=== PATIENT | male | born 1980 | race African-American/Black ===

== ENCOUNTER 2019-12-09 20:51 | Emergency (ER) | payer BC ==
[~2019-12-09] VITALS: Ht 185.4 cm; Wt 145.4 kg
[~2019-12-09 20:51] MED LIST: AMOXICILLIN500 MG OR; AUGMENTIN875TAB OR; CIPROFLOXACN500 MG PO; HUMULIN 70/30 SC; LORTAB 10 PO; LORTAB 5 OR; LORTAB 7.57.5 MG OR
[2019-12-09 22:17] LABS: HEMATOCRIT 37.4 % (39.0-50.0); HEMOGLOBIN 13.1 g/dl (14.0-18.0); IMMATURE GRANULOCYTES 0.2 % (0.0-5.0); MEAN CELL VOLUME 81.5 fL CALC (80.0-100.0); MEAN CORPUSCULAR HGB 28.5 pG CALC (26.0-32.0); NEUT# 4.44 thou/uL (1.82-7.42); RED BLOOD COUNT 4.59 mill/uL (4.70-6.10); RED CELL DISTRI WIDTH 13.4 % (11.5-15.5)
[2019-12-09 22:18] LABS: URINE BILIRUBIN - DIPSTICK NEGATIVE (NEGATIVE); URINE BLOOD DIPSTICK SMALL (NEGATIVE); URINE COLOR YELLOW; URINE GLUCOSE - DIPSTICK NEGATIVE (NEGATIVE); URINE KETONE TRACE mg/dL (NEGATIVE); URINE LEUK ESTERASE NEGATIVE (NEGATIVE); URINE NITRITE - DIPSTICK NEGATIVE (Negative); URINE PH 5.5 (4.5-8.0); URINE PROTEIN - DIPSTICK 30 mg/dL (NEG-TRACE); URINE SPECIFIC GRAVITY >=1.030; URINE UROBILINOGEN - DIPSTICK 0.2 E.U./dL (0.2)
[2019-12-09 22:24] LABS: URINE WBC 0-2 WBC/hpf (0-5)
[2019-12-09 22:35] LABS: ALBUMIN 4.2 g/dL (3.2-5.0); ALKALINE PHOSPHATASE 69 u/l (38-126); ANION GAP 13 (6-22 (CALC)); BILIRUBIN, TOTAL 0.4 mg/dL (0.0-1.4); BUN 21 mg/dL (9-20); BUN/CREATININE RATIO 13 (12-20 (CALC)); CARBON DIOXIDE 23 mmol/l (22-30); CHLORIDE 105 mmol/l (95-108); CREATININE 1.5 mg/dL (0.7-1.3); GFR 52 ML/MIN (>=60 (CALC)); GFR FOR AFR.AMER. > 60 ML/MIN (>=60 (CALC)); POTASSIUM 3.7 mmol/l (3.5-5.1); SGOT/AST 36 u/l (17-59); SODIUM 137 mmol/l (137-146); TOTAL PROTEIN 7.1 g/dL (6.3-8.2)
[2019-12-09 22:49] LABS: MYOGLOBIN 51 ng/mL (0 - 121)
[2019-12-09] MEDS ORDERED: LOTRISONE EX (22:50)
[2019-12-09 22:52] VITALS: BP 179/90
== END 2019-12-09 22:58 | disposition home or self-care (01) | DRG 607 ==
LOC: ED 20:51
PROVIDERS: Emergency Medicine
DX: L25.9 Unspecified contact dermatitis, unspecified cause (principal); E11.9 Type 2 diabetes mellitus without complications; I10 Essential (primary) hypertension; F17.200 Nicotine dependence, unspecified, uncomplicated

== ENCOUNTER 2020-05-06 09:10 | Emergency (ER) | payer BC ==
[~2020-05-06] VITALS: Ht 185.4 cm; Wt 118.0 kg
[~2020-05-06 09:10] MED LIST changes: +LOTRISONE EX
[2020-05-06 10:20] LABS: HEMATOCRIT 42.2 % (39.0-50.0); IMMATURE GRANULOCYTES 0.3 % (0.0-5.0); MEAN CELL VOLUME 81.8 fL CALC (80.0-100.0); MEAN CORPUSCULAR HGB 29.1 pG CALC (26.0-32.0); MEAN CORPUSCULAR HGB CONC 35.5 g/dL CAL (32.0-36.0); NEUT# 5.49 thou/uL (1.82-7.42); RED BLOOD COUNT 5.16 mill/uL (4.70-6.10); RED CELL DISTRI WIDTH 13.8 % (11.5-15.5)
[2020-05-06 10:38] LABS: ALBUMIN 4.1 g/dL (3.2-5.0); ALKALINE PHOSPHATASE 71 u/l (38-126); ANION GAP 10 (6-22 (CALC)); BUN 9 mg/dL (9-20); BUN/CREATININE RATIO 9 (12-20 (CALC)); CARBON DIOXIDE 25 mmol/l (22-30); CHLORIDE 105 mmol/l (95-108); GFR > 60 ML/MIN (>=60 (CALC)); GFR FOR AFR.AMER. > 60 ML/MIN (>=60 (CALC)); POTASSIUM 3.7 mmol/l (3.5-5.1); SGOT/AST 24 u/l (17-59); SODIUM 137 mmol/l (137-146); TOTAL PROTEIN 7.1 g/dL (6.3-8.2)
[2020-05-06 10:40] LABS: BILIRUBIN, TOTAL 0.6 mg/dL (0.0-1.4)
[2020-05-06] MEDS ORDERED: ZPAK PO (11:24)
[2020-05-06 11:37] VITALS: BP 170/106
== END 2020-05-06 11:58 | disposition home or self-care (01) | DRG 153 ==
LOC: ED 09:10
DX: J06.9 Acute upper respiratory infection, unspecified (principal); J40 Bronchitis, not specified as acute or chronic; E11.9 Type 2 diabetes mellitus without complications; I10 Essential (primary) hypertension; F17.200 Nicotine dependence, unspecified, uncomplicated; Z20.822 Contact with and (suspected) exposure to COVID-19

== ENCOUNTER 2020-08-18 05:10 | Observation (INO) | payer BC ==
[2020-08-18] VITALS (30 sets, daily range): BP systolic 107–222; BP diastolic 60–118
[~2020-08-18 05:10] MED LIST changes: +ZPAK PO
--- NOTE | 2020-08-18 05:10 | NUR ---
PT TO ROOM VIA W/C. PT NOT WANTING TO MOVE FROM WR CHAIR TO W/C. TOO MUCH PAIN.
[2020-08-18] MEDS ORDERED: DIOVAN80 MG PO (05:34)
[2020-08-18 05:40] LABS: HEMATOCRIT 37.4 % (39.0-50.0); HEMOGLOBIN 13.5 g/dl (14.0-18.0); IMMATURE GRANULOCYTES 0.3 % (0.0-5.0); MEAN CORPUSCULAR HGB 29.2 pG CALC (26.0-32.0); MEAN CORPUSCULAR HGB CONC 36.1 g/dL CAL (32.0-36.0); NEUT# 4.01 thou/uL (1.82-7.42); RED BLOOD COUNT 4.62 mill/uL (4.70-6.10); RED CELL DISTRI WIDTH 14.2 % (11.5-15.5)
[2020-08-18 05:49] LABS: ALBUMIN 4.9 g/dL (3.2-5.0); ALKALINE PHOSPHATASE 77 u/l (38-126); AMYLASE 60 u/l (30-110); ANION GAP 15 (6-22 (CALC)); BILIRUBIN, TOTAL 0.7 mg/dL (0.0-1.4); BUN 12 mg/dL (9-20); BUN/CREATININE RATIO 10 (12-20 (CALC)); CARBON DIOXIDE 23 mmol/l (22-30); CHLORIDE 106 mmol/l (95-108); CREATININE 1.3 mg/dL (0.7-1.3); GFR > 60 ML/MIN (>=60 (CALC)); GFR FOR AFR.AMER. > 60 ML/MIN (>=60 (CALC)); LIPASE 54 u/l (23-300); POTASSIUM 3.4 mmol/l (3.5-5.1); SGOT/AST 35 u/l (17-59); SODIUM 141 mmol/l (137-146); TOTAL PROTEIN 8.2 g/dL (6.3-8.2)
[2020-08-18 06:03] LABS: MYOGLOBIN 89 ng/mL (0 - 121)
--- NOTE | 2020-08-18 06:51 | NUR ---
NITRO GTT WAS STARTED AT 5 MCG AND HAS BEEN TITRATED UP FOR SBP AND PAIN CONTROL TO 30 MCG. PER MD ORDER GTT TO STAY AT 30 MCG
--- NOTE | 2020-08-18 07:07 | NUR ---
REPORT FROM PRINTING TABLE WORKER NURSE, NIGHT NURSE CALLING REPORT FOR ICU 3
--- NOTE | 2020-08-18 07:37 | NUR ---
ARRIVED TO ICU 3 VIA STRETCHER WITH ER STAFF; DROWSY AND ORIENTED X 3. AMBULATES TO BED INDEPENDENTLY WITH STEADY GAIT. C/O MILD HEADACHE. RESPIRATIONS EVEN AND UNLABORED ON OXYGEN 2L VIA NC; OXYGEN REMOVED ON ARRIVAL AND SPO2 IS 95% ON ROOM AIR. NITROGLYCERIN DRIP INFUSING AT 30 MCG/MIN WITH MAINTENANCE FLUIDS; #18G IV SITE TO RAC APPEARS HEALTHY; #18G IV TO RIGHT HAND SALINE LOCKED AND FLUSHES WELL. BLOOD PRESSURE IS ELEVATED; PT APPEARS SLIGHTLY ANXIOUS AND MAKES COMMENTS ABOUT HOW IS BLOOD PRESSURE IS. DENIES SOB AND NAUSEA. ORIENTED TO ROOM AND CALL LIGHT SYSTEM. PLAN OF CARE DISCUSSED; PT ENCOURAGED TO VERBALIZE CONCERNS; STATES UNDERSTANDING. SAFETY MEASURES IN PLACE. CALL LIGHT WITHIN REACH.
--- NOTE | 2020-08-18 08:29 | NUR ---
MANUAL BLOOD PRESSURES TAKEN; NITRO TITRATED PER PROTOCOL UP TO 50 MCG/MIN; FOLLOW UP BP OF 170/110 HEART RATE OF 95. C/O WORSENING HEADACHE; EDUCATED ON SIDE EFFECTS OF NITRO AND COOL CLOTH PROVIDED.
--- NOTE | 2020-08-18 08:30 | NUR ---
DR. MARTINS AT BEDSIDE .
--- NOTE | 2020-08-18 09:02 | NUR ---
TYLENOL GIVEN FOR SEVERE 10/10 HEADACHE. COZAAR PO ALSO GIVEN; NITRO TITRATED BACK DOWN TO 30 MCG/MIN; WILL WEAN OFF PER MD VERBAL ORDER.
--- NOTE | 2020-08-18 09:27 | NUR ---
NITRO CURRENLTY INFUSING AT 20 MCG/MIN; PT RESTING MORE COMFORTABLY WITH EYES CLOSED. WILL CONTINUE TO MONITOR.
--- NOTE | 2020-08-18 10:13 | NUR ---
NITRO GTT DISCONTINUED. BLOOD PRESSURE 212/117 HR 92.
--- NOTE | 2020-08-18 10:58 | NUR ---
BLOOD PRESSURE REMAINS ELEVATED EVEN WHILE IS RESTING WITH EYES CLOSED; CURRENTLY 220/100 AND HEART RATE 96; NEW ORDER RECEIVED TO INITIATE NICARDIPINE GTT FOR TARGET BP OF LESS THAN 160/100.
--- NOTE | 2020-08-18 11:38 | NUR ---
CARDENE GTT INITATED AT 5 MG/HR WITH CURRENT BP OF 220/114 HR 98. PT RESTING WITH EYES CLOSED AND NO SIGNS OF DISTRESS; DOES NOT OPEN EYES UPON ENTERING ROOM. LUNCH TRAY PLACED AT BEDSIDE.
--- NOTE | 2020-08-18 12:39 | NUR ---
CARDENE GTT TITRATED UP; CURRENTLY AT 10 MG/HR.
--- NOTE | 2020-08-18 15:40 | NUR ---
PT VOIDED 975 ML OF CLEAR, YELLOW URINE. URINE SPECIMEN COLLECTED AND SENT TO LAB. CARDENE TITRATED AT THIS TIME UP TO 15 MG/HR; BLOOD PRESSURE CURRENTLY 186/88.
[2020-08-18 16:08] LABS: URINE BILIRUBIN - DIPSTICK NEGATIVE (NEGATIVE); URINE BLOOD DIPSTICK TRACE-INTACT (NEGATIVE); URINE COLOR YELLOW; URINE GLUCOSE - DIPSTICK NEGATIVE (NEGATIVE); URINE KETONE TRACE mg/dL (NEGATIVE); URINE LEUK ESTERASE NEGATIVE (NEGATIVE); URINE PH 6.5 (4.5-8.0); URINE PROTEIN - DIPSTICK NEGATIVE (NEG-TRACE); URINE SPECIFIC GRAVITY 1.025; URINE UROBILINOGEN - DIPSTICK 0.2 E.U./dL (0.2)
[2020-08-18 16:12] LABS: URINE NITRITE - DIPSTICK NEGATIVE (Negative)
--- NOTE | 2020-08-18 17:00 | NUR ---
FAMILY MEMBER AT BEDSIDE. PT ALERT AND AWAKE; STATES HE FEELS MUCH BETTER AND HIS HEADACHE IS RESOLVED.
--- NOTE | 2020-08-18 19:15 | NUR ---
REPORT GIVEN BY NEGRA. PATIENT IS IN BED WITH FAMILY MEMEBER AT THE BEDSIDE. RESP EVEN AND UNLABORED. NO S/S OF DISTRESS NOTED. IV INFUSING CARDENE AND IV FLUIDS.FALL AND SAFTEY PRECAUTIONS IN PLACE. PATIENT INFORMED TO CALL WITH ANY QUESTIONS OR CONCERNS. PLAN OF CARE DISCUSSED.
--- NOTE | 2020-08-18 20:17 | NUR ---
FRESH WATER PROVIDED, PT DENIES FURTHER NEEDS AT THIS TIME.
--- NOTE | 2020-08-18 21:03 | NUR ---
CARDENE TITRIATED DUE TO REACHING TARGET SBP. 15MG TO 12.5 MG/HR.
--- NOTE | 2020-08-18 21:30 | NUR ---
CARDENE TITRIATED FROM 12.5 MG/HR TO 10.0 MG/HR. BP BELOW TARGET GOAL.
--- NOTE | 2020-08-18 22:00 | NUR ---
CARDENE DRIP TITRAITED FROM 10 MG/HR TO 8 MG/HR
[2020-08-19] VITALS (21 sets, daily range): BP systolic 140–189; BP diastolic 70–96
--- NOTE | 2020-08-19 01:24 | NUR ---
PATIENT RESTING WITH EYES CLOSED. RESP EVEN AND UNLABORED. NO S/S OF DISTRESS NOTED. FALL AND SAFTEY PRECAUTIONS IN PLACE
--- NOTE | 2020-08-19 02:33 | NUR ---
900 ML URINE OUTPUT
--- NOTE | 2020-08-19 04:08 | NUR ---
PATIENT RESTING WITH EYES CLOSED. NO S/S OF DISTRESS NOTED. FALL AND SAFTEYP PRECAUTIONS IN PLACE.
[2020-08-19 06:33] LABS: ALKALINE PHOSPHATASE 74 u/l (38-126); ANION GAP 10 (6-22 (CALC)); BUN 9 mg/dL (9-20); BUN/CREATININE RATIO 12 (12-20 (CALC)); CARBON DIOXIDE 24 mmol/l (22-30); CHLORIDE 106 mmol/l (95-108); CREATININE 0.8 mg/dL (0.7-1.3); GFR > 60 ML/MIN (>=60 (CALC)); GFR FOR AFR.AMER. > 60 ML/MIN (>=60 (CALC)); MAGNESIUM 2.2 mg/dL (1.6-2.3); POTASSIUM 3.4 mmol/l (3.5-5.1); SGOT/AST 27 u/l (17-59); SODIUM 136 mmol/l (137-146)
[2020-08-19 06:35] LABS: ALBUMIN 3.5 g/dL (3.2-5.0); TOTAL PROTEIN 6.3 g/dL (6.3-8.2)
--- NOTE | 2020-08-19 06:45 | NUR ---
REPORT RECEIVED FROM SURINDER TERRY. CARE ASSUMED.
--- NOTE | 2020-08-19 07:40 | NUR ---
PT RESTING IN BED AWAKE. PT IS ALERT AND ORIENTED X3. SHIFT ASSESSMENT COMPLETED AT THIS TIME. IV PATENT X2. CARDENE TITRATED PER TITRATION CHARTING. CALL LIGHT IN REACH. WILL CONTINUE TO MONITOR.
--- NOTE | 2020-08-19 08:54 | NUR ---
DR MARTINS AT BEDSIDE AT THIS TIME.
--- NOTE | 2020-08-19 10:30 | NUR ---
PT RESTING IN BED AWAKE. CALL LIGHT IN REACH. WILL CONTINUE TO MONITOR.
--- NOTE | 2020-08-19 12:30 | NUR ---
dr maldonado notified of cardene being weaned. pt can be dc'd if sbp around 150
[2020-08-19] MEDS ORDERED: TOPROL XL25 M1 PO (12:40)
--- NOTE | 2020-08-19 13:35 | NUR ---
MANUAL BP CHECKED AT THIS TIME 160/102. WILL RECHECK IN 30 MINUTES
--- NOTE | 2020-08-19 14:14 | NUR ---
RECHECKED BP 153/98.
[2020-08-19] MEDS ORDERED: DIOVAN80 MG PO (14:29)
--- NOTE | 2020-08-19 14:31 | NUR ---
IV site discontinued X2, cath intact. No edema , no redness, voices no discomfort.
--- NOTE | 2020-08-19 14:45 | NUR ---
Discharge instructions given. Patient verbalizes understanding of same. Discharged in stable condition via Wheelchair to Home with family. All belongings sent with pt.
== END 2020-08-19 14:45 | disposition home or self-care (01) | DRG 305 ==
LOC: ED 05:10 → ED-I 06:13 → ED 06:27 → ICU 06:28
PROVIDERS: Emergency Medicine; Internal Medicine; ADMIT Internal Medicine; ATTEND Internal Medicine
DX: I16.1 Hypertensive emergency (principal); I10 Essential (primary) hypertension; E11.9 Type 2 diabetes mellitus without complications; F17.200 Nicotine dependence, unspecified, uncomplicated; Z20.822 Contact with and (suspected) exposure to COVID-19

== ENCOUNTER 2020-11-19 06:30 | Emergency (ER) | payer BC ==
[~2020-11-19 06:30] MED LIST changes: +DIOVAN80 MG PO; +TOPROL XL25 M1 PO
[2020-11-19] MEDS ORDERED: CLONIDINE0.1 MG PO (06:52)
[2020-11-19] MEDS ORDERED: METOPROLOL SUCC50 MG PO (06:52)
[2020-11-19] MEDS ORDERED: ANOTHER BP MED (06:53)
[2020-11-19] MEDS ORDERED: DECADRON2 MG PO (08:27)
[2020-11-19] MEDS ORDERED: VENTOLIN HFA IN (08:27)
[2020-11-19] MEDS ORDERED: ZPAK PO (08:27)
[2020-11-19 09:10] VITALS: BP 163/94
== END 2020-11-19 09:10 | disposition home or self-care (01) | DRG 177 ==
LOC: ED 06:30
DX: U07.1 COVID-19 (principal); J12.82 Pneumonia due to coronavirus disease 2019; I10 Essential (primary) hypertension; R73.03 Prediabetes; F17.200 Nicotine dependence, unspecified, uncomplicated

== ENCOUNTER 2020-11-25 11:17 | Observation (INO) | payer BC ==
[~2020-11-25 11:17] MED LIST changes: +ANOTHER BP MED; +CLONIDINE0.1 MG PO; +DECADRON2 MG PO; +METOPROLOL SUCC50 MG PO; +VENTOLIN HFA IN
--- NOTE | 2020-11-25 11:30 | NUR ---
TO ROOM FOR TRIAGE, AT BEDSIDE
[2020-11-25 12:14] LABS: IMMATURE GRANULOCYTES 0.2 % (0.0-5.0); MEAN CELL VOLUME 81.4 fL CALC (80.0-100.0); MEAN CORPUSCULAR HGB 29.4 pG CALC (26.0-32.0); MEAN CORPUSCULAR HGB CONC 36.1 g/dL CAL (32.0-36.0); NEUT# 1.98 thou/uL (1.82-7.42); RED BLOOD COUNT 5.86 mill/uL (4.70-6.10); RED CELL DISTRI WIDTH 13.9 % (11.5-15.5)
--- NOTE | 2020-11-25 12:23 | NUR ---
STROKE ALERT CALLED.
--- NOTE | 2020-11-25 12:24 | NUR ---
PATIENT TAKEN TO CT VIA STRETCHER BY THIS RN AND REMAINED AT SIDE.
[2020-11-25 12:42] LABS: ALKALINE PHOSPHATASE 70 u/l (38-126); ANION GAP 13 (6-22 (CALC)); BUN 11 mg/dL (9-20); BUN/CREATININE RATIO 11 (12-20 (CALC)); C-REACTIVE PROTEIN 1.3 mg/dL (0-0.9); CARBON DIOXIDE 26 mmol/l (22-30); CHLORIDE 98 mmol/l (95-108); GFR > 60 ML/MIN (>=60 (CALC)); GFR FOR AFR.AMER. > 60 ML/MIN (>=60 (CALC)); HEMATOCRIT 47.7 % (39.0-50.0); HEMOGLOBIN 17.2 g/dl (14.0-18.0); POTASSIUM 3.5 mmol/l (3.5-5.1); SODIUM 133 mmol/l (137-146)
[2020-11-25 12:47] LABS: ALBUMIN 4.4 g/dL (3.2-5.0); SGOT/AST 51 u/l (17-59)
--- NOTE | 2020-11-25 13:20 | NUR ---
RETURNED BACK TO ROOM 8 FROM STROKE ALERT. PLAN REVIEWED, PATIENT AND S.O. VERBALIZE UNDERSTANDING.
--- NOTE | 2020-11-25 13:25 | NUR ---
IVF AND ROCEPHIN INFUSING. NO DISTRESS. CALL MILLER IN REACH.
--- NOTE | 2020-11-25 14:00 | NUR ---
PATIENT STATES HE IS FEELING SO MUCH BETTER. WCTM.
--- NOTE | 2020-11-25 14:40 | NUR ---
MD AT BEDSIDE TO DISCUSS RESULTS AND POC.
--- NOTE | 2020-11-25 14:51 | NUR ---
DR KBEEDE AT BEDSIDE TO DISCUSS ADMISSION. PATIENT AGREES. AND WANTS FOOD. OK PER DR KEBEDE.
--- NOTE | 2020-11-25 16:00 | NUR ---
PATIENT RESTING. WAITING FOR FOOD FROM HIS S.O.
--- NOTE | 2020-11-25 17:05 | NUR ---
Reassessment of patient completed. No distress noted.
--- NOTE | 2020-11-25 18:10 | NUR ---
DINNER TRAY PROVIDED.
--- NOTE | 2020-11-25 19:33 | NUR ---
PATIENT TO MRI VIA , [id number]
--- NOTE | 2020-11-25 21:00 | NUR ---
PATIENT IS RESTING. NO DISTRESS. CONTINUING TO MONITOR.
--- NOTE | 2020-11-25 22:30 | NUR ---
REPORT TO MARA RUBIN
--- NOTE | 2020-11-25 22:50 | NUR ---
RECIEVED REPORT FROM MARA VALENTIN. ASSUMED CARE OF PATIENT.
--- NOTE | 2020-11-26 00:31 | NUR ---
TELEPHONE REPORT RECEIVED FROM Jayleen BRANDON RN. ICU 3 PREPARED TO RECEIVE PT.
--- NOTE | 2020-11-26 00:40 | NUR ---
PT ARRIVES TO UNIT VIA WC, ACCOMPANIED BY Jayleen BRANDON RN.
--- NOTE | 2020-11-26 01:15 | NUR ---
UNABLE TO GET NIBP WITH MONITOR. MANUAL BP TAKEN TO FIDEL LUTHER SUPINE, READING IS 180/130mmHg. REPORTED READINGS TO Jayleen VALDEZ APRN. ORDER FOR 0.2MG OF CLONIDINE RECEIVED. ORDER FAXED TO [facility] STAT.
[2020-11-26 02:30] VITALS: BP 198/140
--- NOTE | 2020-11-26 02:30 | NUR ---
F/U: CONTINUE TO BE ABLE TO GET NIBP VIA MONITOR. MANUAL NIBP 198/120mmHg. PT ASYMPTOMATIC. WILL CON'T TO MONITOR.
--- NOTE | 2020-11-26 04:00 | NUR ---
PT APPEARS TO BE SLEEPING COMFORTABLY. RESPIRATIONS REGULAR AND UNLABORED. SR ON MONITOR. NO APPARENT DISTRESS. CALL MILLER REMAINS WITHIN REACH.
[2020-11-26 05:30] VITALS: BP 230/120
--- NOTE | 2020-11-26 05:45 | NUR ---
MANUAL NIBP 230/120mmHg. CONFIRMED WITH SECOND RN Joni MOYER RN WHO REPORTS 210/130mmHg. PT REMAINS ASYMPTOMATIC. Jayleen VALDEZ APRN NOTIFIED. ORDERS FOR HYDRALAZINE AND LOPRESSOR RECEIVED AND FAXED TO [facility].
--- NOTE | 2020-11-26 06:10 | NUR ---
PRN APRESOLINE AND LOPRESSOR ADMINISTERED, SEE KESHA PHAM IN ROOM COLLECTING LABS.
[2020-11-26 06:32] LABS: HEMOGLOBIN 15.6 g/dl (14.0-18.0); MEAN CELL VOLUME 81.4 fL CALC (80.0-100.0); MEAN CORPUSCULAR HGB 29.5 pG CALC (26.0-32.0); MEAN CORPUSCULAR HGB CONC 36.3 g/dL CAL (32.0-36.0); RED BLOOD COUNT 5.28 mill/uL (4.70-6.10); RED CELL DISTRI WIDTH 13.8 % (11.5-15.5)
[2020-11-26 06:44] LABS: ANION GAP 12 (6-22 (CALC)); BUN 12 mg/dL (9-20); BUN/CREATININE RATIO 18 (12-20 (CALC)); CALCULATED LDLCHOLESTEROL 89 mg/dL (62-129 (CALC)); CARBON DIOXIDE 22 mmol/l (22-30); CHLORIDE 104 mmol/l (95-108); CHOLESTEROL HDL RATIO 4.5 (<4.4 (CALC)); CREATININE 0.7 mg/dL (0.7-1.3); GFR > 60 ML/MIN (>=60 (CALC)); GFR FOR AFR.AMER. > 60 ML/MIN (>=60 (CALC)); HDL CHOLESTEROL 32 mg/dL (>=40); MAGNESIUM 1.9 mg/dL (1.6-2.3); POTASSIUM 4.1 mmol/l (3.5-5.1); SODIUM 133 mmol/l (137-146); TOTAL CHOLESTEROL 144 mg/dl (0-199); TOTAL TRIGLYCERIDES 113 mg/dl (30-149); VLDL CHOLESTROL 23 mg/dl (5-56 (CALC))
--- NOTE | 2020-11-26 06:52 | NUR ---
PT RESTING COMFPORTABLY. NAD. VSS. NO RT INTERVENTION NEEDED AT THIS TIME. PROGRAM ADVOCATE TO MONITOR.
[2020-11-26 07:50] VITALS: BP 210/114
--- NOTE | 2020-11-26 07:50 | NUR ---
pt awake in bed; no apparent distress noted; pt offers no complaints; assessment completed at this time; pt alert and oriented; denies pain; no n/v noted; resp even and unlabored; lungs clear bilat; skin color wnl; ra; hr reg; strong pulses; no edema noted; sr/ drepressed t wave on monitor; abd soft with bs present; no bm noted per handbook writer; pt denies diarrhea; pt admits to voiding without complication; no urine to inspect at this time; urinal at bedside; #20 saline locked to lac; flushed and patent; no redness or edema noted at site; plan of care/ am meds explained; pt inquiring of MD arrival; states he is ready to go home; elevated BP explained to pt; pt very anxioud and ready to go home; manual BP 210/114; call light within reach; will continue to monitor
--- NOTE | 2020-11-26 08:04 | NUR ---
awake sitting on the side of the bed eating breakfast; no apparent distress noted; am meds explained and administered; pt anxious and ready to go home; call light within reach; will continue to monitor
[2020-11-26 09:00] VITALS: BP 190/120
--- NOTE | 2020-11-26 10:09 | NUR ---
awake in bed conversing on cell phone; sr/ depressed t waves in monitor; iv intact; pt offers no complaints; call light within reach; will continue to monitor
--- NOTE | 2020-11-26 10:49 | NUR ---
NAD. VSS. SUGAR LABORATORY ASSISTANT TO MONITOR.
[2020-11-26 11:18] VITALS: BP 180/114
[2020-11-26] MEDS ORDERED: DIOVAN160 MG PO (11:33)
[2020-11-26] MEDS ORDERED: ZITHROMAX250 MG PO (11:35)
--- NOTE | 2020-11-26 11:49 | NUR ---
Dr Arnold present at bedside to assess pt and discuss plan of care
--- NOTE | 2020-11-26 12:00 | NUR ---
awake in bed; offers no complaints; denies headache/ blurred vision; no neuro deficits noted; sr on monitor; iv intact; will continue to monitor
[2020-11-26 13:00] VITALS: BP 170/90
--- NOTE | 2020-11-26 13:05 | NUR ---
Discharge instructions given. Patient verbalizes understanding of same. Discharged in good condition via Ambulatory to Home with family. All belongings sent with pt.
--- NOTE | 2020-11-26 16:56 | NUR ---
Attempted eval but patient has been discharged
--- NOTE | 2020-11-29 11:13 | NUR ---
Pneumonia post discharge follow up call completed today, 11/29/20. Pt. states he is doing well. No fever, chils, or SOB. Still has no sense of taste or smell. Pt. obtained prescribed medication and is taking without issue. Follow up appt. with PCP is scheduled for 12/02/20. No questions or concerns voiced at this time. Appreciative of call.
== END 2020-11-26 13:05 | disposition home or self-care (01) | DRG 69 ==
LOC: ED 11:17 → ED-I 14:14 → ED 15:56 → ED-I 15:57 → ICU 11-26 00:19
PROVIDERS: Family Medicine; Nurse Practitioner; ADMIT Internal Medicine; ATTEND Internal Medicine
DX: G45.9 Transient cerebral ischemic attack, unspecified (principal); U07.1 COVID-19; I10 Essential (primary) hypertension; I16.0 Hypertensive urgency; E11.9 Type 2 diabetes mellitus without complications; F41.9 Anxiety disorder, unspecified; F17.200 Nicotine dependence, unspecified, uncomplicated
CPT/HCPCS: J1650; Q9967

== ENCOUNTER 2021-04-16 03:15 | Emergency (ER) | payer BC ==
[~2021-04-16] VITALS: Ht 185.4 cm; Wt 137.0 kg
[~2021-04-16 03:15] MED LIST changes: +DIOVAN160 MG PO; +ZITHROMAX250 MG PO
[2021-04-16 06:00] VITALS: BP 169/82
== END 2021-04-16 06:30 | disposition home or self-care (01) | DRG 563 ==
LOC: ED 03:15
DX: S93.402A Sprain of unspecified ligament of left ankle, initial encounter (principal); S93.401A Sprain of unspecified ligament of right ankle, initial encounter; S93.602A Unspecified sprain of left foot, initial encounter; S93.601A Unspecified sprain of right foot, initial encounter; S80.812A Abrasion, left lower leg, initial encounter; S50.02XA Contusion of left elbow, initial encounter; I10 Essential (primary) hypertension; F17.200 Nicotine dependence, unspecified, uncomplicated; V86.56XA Driver of dirt bike or motor/cross bike injured in nontraffic accident, initial encounter; Y93.I9 Activity, other involving external motion; Y92.821 Forest as the place of occurrence of the external cause
CPT/HCPCS: J0131

== ENCOUNTER 2021-05-24 17:52 | Emergency (ER) | payer BC ==
[~2021-05-24] VITALS: Ht 185.4 cm; Wt 138.6 kg
[2021-05-24] MEDS ORDERED: TESSALON PERLE100 MG PO (19:29)
[2021-05-24 19:41] VITALS: BP 196/103
== END 2021-05-24 19:57 | disposition home or self-care (01) | DRG 866 ==
LOC: ED 17:52
DX: B34.9 Viral infection, unspecified (principal); I10 Essential (primary) hypertension; F17.200 Nicotine dependence, unspecified, uncomplicated; Z20.822 Contact with and (suspected) exposure to COVID-19

== ENCOUNTER 2021-07-24 02:30 | Emergency (ER) | payer BC ==
[~2021-07-24] VITALS: Ht 185.4 cm; Wt 140.0 kg
[~2021-07-24 02:30] MED LIST changes: +TESSALON PERLE100 MG PO
[2021-07-24] MEDS ORDERED: VOLTAREN75 MG PO (04:39)
[2021-07-24] MEDS ORDERED: TRAMADOL HCL50 MG PO (04:39)
[2021-07-24 07:55] VITALS: BP 165/98
== END 2021-07-24 07:55 | disposition home or self-care (01) | DRG 563 ==
LOC: ED 02:30
DX: S93.402A Sprain of unspecified ligament of left ankle, initial encounter (principal); S93.602A Unspecified sprain of left foot, initial encounter; S86.912A Strain of unspecified muscle(s) and tendon(s) at lower leg level, left leg, initial encounter; S80.12XA Contusion of left lower leg, initial encounter; I10 Essential (primary) hypertension; F17.200 Nicotine dependence, unspecified, uncomplicated; V86.56XA Driver of dirt bike or motor/cross bike injured in nontraffic accident, initial encounter; Y93.I9 Activity, other involving external motion

== ENCOUNTER 2021-09-27 03:52 | Emergency (ER) | payer BC ==
[~2021-09-27] VITALS: Ht 185.4 cm; Wt 130.0 kg
[~2021-09-27 03:52] MED LIST changes: +TRAMADOL HCL50 MG PO; +VOLTAREN75 MG PO
[2021-09-27 04:41] LABS: GFR FOR AFR.AMER. > 60 ML/MIN (>=60 (CALC)); GFR OTHER RACES > 60 ML/MIN (>=60 (CALC))
[2021-09-27 04:46] LABS: IMMATURE GRANULOCYTES 0.1 % (0.0-5.0); MEAN CELL VOLUME 84.6 fL CALC (80.0-100.0); MEAN CORPUSCULAR HGB 30.3 pG CALC (26.0-32.0); MEAN CORPUSCULAR HGB CONC 35.9 g/dL CAL (32.0-36.0); NEUT# 4.71 thou/uL (1.82-7.42); RED BLOOD COUNT 4.22 mill/uL (4.70-6.10); RED CELL DISTRI WIDTH 14.2 % (11.5-15.5)
[2021-09-27 04:54] LABS: HEMATOCRIT 35.7 % (39.0-50.0); HEMOGLOBIN 12.8 g/dl (14.0-18.0)
[2021-09-27 05:00] LABS: INTERNATIONAL NORMALIZED RATIO 0.9 RATIO (0.7-1.3); PROTHROMBIN TIME 9.9 SECONDS (9.0-12.5)
[2021-09-27 05:01] LABS: ALBUMIN 3.9 g/dL (3.2-5.0); ALKALINE PHOSPHATASE 81 u/l (38-126); BUN 11 mg/dL (9-20); BUN/CREATININE RATIO 10 (12-20 (CALC)); CARBON DIOXIDE 22 mmol/l (22-30); CHLORIDE 110 mmol/l (95-108); CREATININE 1.1 mg/dL (0.7-1.3); GFR FOR AFR.AMER. > 60 ML/MIN (>=60 (CALC)); GFR OTHER RACES > 60 ML/MIN (>=60 (CALC)); SGOT/AST 30 u/l (17-59)
[2021-09-27 05:02] LABS: ANION GAP 11 (6-22 (CALC)); BILIRUBIN, TOTAL 0.3 mg/dL (0.0-1.4); POTASSIUM 3.2 mmol/l (3.5-5.1); SODIUM 140 mmol/l (137-146)
[2021-09-27 05:13] LABS: MYOGLOBIN 44 ng/mL (0 - 121)
[2021-09-27 07:04] VITALS: BP 188/111
== END 2021-09-27 07:04 | disposition short-term general hospital (02) | DRG 69 ==
LOC: ED 03:52
PROVIDERS: Emergency Medicine
DX: G45.9 Transient cerebral ischemic attack, unspecified (principal); I10 Essential (primary) hypertension; R40.4 Transient alteration of awareness
CPT/HCPCS: Q9967

== ENCOUNTER 2022-01-25 05:40 | Emergency (ER) | payer BC ==
[~2022-01-25] VITALS: Ht 185.4 cm; Wt 110.0 kg
[2022-01-25] VITALS (10 sets, daily range): BP systolic 155–178; BP diastolic 101–120
[2022-01-25 06:50] LABS: HEMATOCRIT 33.6 % (39.0-50.0); HEMOGLOBIN 12.3 g/dl (14.0-18.0); IMMATURE GRANULOCYTES 0.1 % (0.0-5.0); MEAN CELL VOLUME 81.4 fL CALC (80.0-100.0); MEAN CORPUSCULAR HGB 29.8 pG CALC (26.0-32.0); MEAN CORPUSCULAR HGB CONC 36.6 g/dL CAL (32.0-36.0); NEUT# 3.9 thou/uL (1.82-7.42); RED BLOOD COUNT 4.13 mill/uL (4.70-6.10); RED CELL DISTRI WIDTH 14.7 % (11.5-15.5)
[2022-01-25 07:09] LABS: ALBUMIN 4.1 g/dL (3.2-5.0); ALKALINE PHOSPHATASE 73 u/l (38-126); ANION GAP 12 (6-22 (CALC)); BILIRUBIN, TOTAL 0.3 mg/dL (0.0-1.4); BUN 7 mg/dL (9-20); BUN/CREATININE RATIO 7 (12-20 (CALC)); CARBON DIOXIDE 25 mmol/l (22-30); CHLORIDE 106 mmol/l (95-108); CPK 197 u/l (52-200); ETHYL ALCOHOL 0 mg/dl (0-30); GFR FOR AFR.AMER. > 60 ML/MIN (>=60 (CALC)); GFR OTHER RACES > 60 ML/MIN (>=60 (CALC)); LIPASE 73 u/l (23-300); MAGNESIUM 2.1 mg/dL (1.6-2.3); POTASSIUM 3.3 mmol/l (3.5-5.1); SGOT/AST 32 u/l (17-59); SODIUM 140 mmol/l (137-146); TOTAL PROTEIN 6.9 g/dL (6.3-8.2)
[2022-01-25 07:16] LABS: ACT PARTIAL THROMBO TIME 26.7 SECONDS (20.0-32.5)
[2022-01-25 07:35] LABS: D-DIMER 0.23 mg/L (0.19-0.60)
[2022-01-25 09:23] LABS: URINE BILIRUBIN - DIPSTICK NEGATIVE (NEGATIVE); URINE BLOOD DIPSTICK NEGATIVE (NEGATIVE); URINE GLUCOSE - DIPSTICK NEGATIVE (NEGATIVE); URINE KETONE NEGATIVE (NEGATIVE); URINE LEUK ESTERASE NEGATIVE (NEGATIVE); URINE PROTEIN - DIPSTICK NEGATIVE (NEG-TRACE); URINE UROBILINOGEN - DIPSTICK 0.2 E.U./dL (0.2)
[2022-01-25 09:30] LABS: URINE COLOR STRAW; URINE NITRITE - DIPSTICK NEGATIVE (Negative)
== END 2022-01-25 09:07 | disposition left against medical advice (07) | DRG 948 ==
LOC: ED 05:40
PROVIDERS: Internal Medicine
DX: R41.82 Altered mental status, unspecified (principal); R60.9 Edema, unspecified; I10 Essential (primary) hypertension; R55 Syncope and collapse; R06.02 Shortness of breath; Z53.29 Procedure and treatment not carried out because of patient's decision for other reasons

== ENCOUNTER 2022-03-03 21:05 | Emergency (ER) | payer BC ==
[2022-03-03] VITALS (9 sets, daily range): BP systolic 120–185; BP diastolic 84–105
[~2022-03-03] VITALS: Ht 185.4 cm; Wt 130.0 kg
[2022-03-03] MEDS ORDERED: LABETALOL HYDR200 MG (21:32)
[2022-03-03 21:58] LABS: IMMATURE GRANULOCYTES 0.1 % (0.0-5.0); MEAN CELL VOLUME 81.6 fL CALC (80.0-100.0); MEAN CORPUSCULAR HGB 30.1 pG CALC (26.0-32.0); MEAN CORPUSCULAR HGB CONC 36.8 g/dL CAL (32.0-36.0); NEUT# 6.67 thou/uL (1.82-7.42); RED BLOOD COUNT 5.12 mill/uL (4.70-6.10); RED CELL DISTRI WIDTH 14.3 % (11.5-15.5)
[2022-03-03 22:00] LABS: HEMATOCRIT 41.8 % (39.0-50.0); HEMOGLOBIN 15.4 g/dl (14.0-18.0)
[2022-03-03 22:07] LABS: ALBUMIN 4.6 g/dL (3.2-5.0); ALKALINE PHOSPHATASE 97 u/l (38-126); ANION GAP 14 (6-22 (CALC)); BUN 13 mg/dL (9-20); BUN/CREATININE RATIO 12 (12-20 (CALC)); CARBON DIOXIDE 26 mmol/l (22-30); CHLORIDE 101 mmol/l (95-108); CREATININE 1.1 mg/dL (0.7-1.3); ETHYL ALCOHOL 0 mg/dl (0-30); GFR FOR AFR.AMER. > 60 ML/MIN (>=60 (CALC)); GFR OTHER RACES > 60 ML/MIN (>=60 (CALC)); MAGNESIUM 2.2 mg/dL (1.6-2.3); POTASSIUM 3.4 mmol/l (3.5-5.1); SGOT/AST 37 u/l (17-59); SODIUM 138 mmol/l (137-146); TOTAL PROTEIN 7.9 g/dL (6.3-8.2)
[2022-03-03 22:09] LABS: BILIRUBIN, TOTAL 0.5 mg/dL (0.0-1.4)
[2022-03-03 22:19] LABS: MYOGLOBIN 53 ng/mL (0 - 121)
[2022-03-04 00:01] VITALS: BP 121/68
[2022-03-04] MEDS ORDERED: CHLORTHALID50 MG PO (00:03)
[2022-03-04] MEDS ORDERED: LABETALOL HYDR200 MG PO (00:03)
[2022-03-04 00:18] LABS: URINE BILIRUBIN - DIPSTICK NEGATIVE (NEGATIVE); URINE BLOOD DIPSTICK NEGATIVE (NEGATIVE); URINE COLOR YELLOW; URINE GLUCOSE - DIPSTICK NEGATIVE (NEGATIVE); URINE KETONE NEGATIVE (NEGATIVE); URINE LEUK ESTERASE NEGATIVE (NEGATIVE); URINE NITRITE - DIPSTICK NEGATIVE (Negative); URINE PROTEIN - DIPSTICK NEGATIVE (NEG-TRACE); URINE SPECIFIC GRAVITY >=1.030; URINE UROBILINOGEN - DIPSTICK 0.2 E.U./dL (0.2)
[2022-03-04 00:25] VITALS: BP 121/68
== END 2022-03-04 00:25 | disposition home or self-care (01) | DRG 305 ==
LOC: ED 21:05
PROVIDERS: Family Medicine
DX: I10 Essential (primary) hypertension (principal); R51.9 Headache, unspecified

== ENCOUNTER 2022-04-16 02:15 | Observation (INO) | payer SELFPAY ==
[2022-04-16] VITALS (21 sets, daily range): BP systolic 138–192; BP diastolic 90–127
[~2022-04-16] VITALS: Ht 182.9 cm; Wt 132.0 kg
[~2022-04-16 02:15] MED LIST changes: +CHLORTHALID50 MG PO; +LABETALOL HYDR200 MG PO
[2022-04-16 02:48] LABS: BASO% 0.5 % (0-3); EOS% 4.5 % (0-8); HEMATOCRIT 36.7 % (39.0-50.0); HEMOGLOBIN 13.8 g/dl (14.0-18.0); IMMATURE GRANULOCYTES 0.3 % (0.0-5.0); MEAN CELL VOLUME 81.4 fL CALC (80.0-100.0); MEAN CORPUSCULAR HGB 30.6 pG CALC (26.0-32.0); MEAN CORPUSCULAR HGB CONC 37.6 g/dL CAL (32.0-36.0); MONO% 8.3 % (2-13); NEUT# 4.08 thou/uL (1.82-7.42); NEUT% 47.4 % (42-76); RED BLOOD COUNT 4.51 mill/uL (4.70-6.10); RED CELL DISTRI WIDTH 13.9 % (11.5-15.5)
[2022-04-16] MEDS ORDERED: DIOVAN HCT320 MG/25 PO (03:01)
[2022-04-16 03:04] LABS: ALBUMIN 4.1 g/dL (3.2-5.0); ALKALINE PHOSPHATASE 74 u/l (38-126); ANION GAP 8 (6-22 (CALC)); BILIRUBIN, TOTAL 0.3 mg/dL (0.0-1.4); BUN 8 mg/dL (9-20); BUN/CREATININE RATIO 7 (12-20 (CALC)); CARBON DIOXIDE 26 mmol/l (22-30); CHLORIDE 106 mmol/l (95-108); CREATININE 1.2 mg/dL (0.7-1.3); ETHYL ALCOHOL 0 mg/dl (0-30); GFR FOR AFR.AMER. > 60 ML/MIN (>=60 (CALC)); GFR OTHER RACES > 60 ML/MIN (>=60 (CALC)); POTASSIUM 3.6 mmol/l (3.5-5.1); SGOT/AST 36 u/l (17-59); SODIUM 137 mmol/l (137-146); TOTAL PROTEIN 7.1 g/dL (6.3-8.2)
[2022-04-16 03:14] LABS: INTERNATIONAL NORMALIZED RATIO 1.1 RATIO (0.7-1.3); PROTHROMBIN TIME 10.6 SECONDS (9.0-12.5)
[2022-04-16 03:33] LABS: URINE BILIRUBIN - DIPSTICK NEGATIVE (NEGATIVE); URINE BLOOD DIPSTICK NEGATIVE (NEGATIVE); URINE COLOR YELLOW; URINE GLUCOSE - DIPSTICK NEGATIVE (NEGATIVE); URINE KETONE NEGATIVE (NEGATIVE); URINE LEUK ESTERASE NEGATIVE (NEGATIVE); URINE NITRITE - DIPSTICK NEGATIVE (Negative); URINE PROTEIN - DIPSTICK NEGATIVE (NEG-TRACE); URINE UROBILINOGEN - DIPSTICK 0.2 E.U./dL (0.2)
[2022-04-16 05:36] LABS: C-REACTIVE PROTEIN 0.7 mg/dL (0-0.9); CHOLESTEROL HDL RATIO 4.5 (<4.4 (CALC)); MAGNESIUM 2.2 mg/dL (1.6-2.3)
[2022-04-16 09:17] LABS: BASO% 0.4 % (0-3); EOS% 4.2 % (0-8); HEMATOCRIT 38.9 % (39.0-50.0); HEMOGLOBIN 14.6 g/dl (14.0-18.0); LYMPH% 39.8 % (15-41); MEAN CELL VOLUME 81.2 fL CALC (80.0-100.0); MEAN CORPUSCULAR HGB 30.5 pG CALC (26.0-32.0); MEAN CORPUSCULAR HGB CONC 37.5 g/dL CAL (32.0-36.0); MONO% 5.2 % (2-13); NEUT# 3.84 thou/uL (1.82-7.42); NEUT% 50.4 % (42-76); RED BLOOD COUNT 4.79 mill/uL (4.70-6.10); RED CELL DISTRI WIDTH 13.9 % (11.5-15.5)
[2022-04-16 09:42] LABS: ANION GAP 10 (6-22 (CALC)); BUN 8 mg/dL (9-20); BUN/CREATININE RATIO 7 (12-20 (CALC)); CARBON DIOXIDE 26 mmol/l (22-30); CHLORIDE 106 mmol/l (95-108); CREATININE 1.1 mg/dL (0.7-1.3); GFR FOR AFR.AMER. > 60 ML/MIN (>=60 (CALC)); GFR OTHER RACES > 60 ML/MIN (>=60 (CALC)); POTASSIUM 3.5 mmol/l (3.5-5.1); SODIUM 138 mmol/l (137-146)
[2022-04-16] MEDS ORDERED: NORVASC5 M1 PO (10:38)
[2022-04-16] MEDS ORDERED: ATORVASTATIN CA40 MG PO (10:39)
[2022-04-16] MEDS ORDERED: CANDESARTAN CIL32 MG PO (10:58)
[2022-04-16] MEDS ORDERED: HYDROCHLOROT25 MG PO (10:59)
[2022-04-16] MEDS ORDERED: PLAVIX75 MG PO (10:59)
[2022-04-16] MEDS ORDERED: ADLT ASA LOW81 MG PO (10:59)
== END 2022-04-16 13:10 | disposition home or self-care (01) | DRG 69 ==
LOC: ED 02:15 → ED-I 03:50 → ED 04:18 → ICU 04:19
PROVIDERS: Family Medicine; ADMIT Internal Medicine; ATTEND Internal Medicine
DX: G45.9 Transient cerebral ischemic attack, unspecified (principal); I10 Essential (primary) hypertension; F17.200 Nicotine dependence, unspecified, uncomplicated; I25.10 Atherosclerotic heart disease of native coronary artery without angina pectoris; G47.33 Obstructive sleep apnea (adult) (pediatric); T46.5X6A Underdosing of other antihypertensive drugs, initial encounter; Z91.128 Patient's intentional underdosing of medication regimen for other reason; Z79.82 Long term (current) use of aspirin; Z91.199 Patient's noncompliance with other medical treatment and regimen due to unspecified reason; Z20.822 Contact with and (suspected) exposure to COVID-19
CPT/HCPCS: Q9967

== ENCOUNTER 2022-04-20 00:52 | Emergency (ER) | payer SELFPAY ==
[~2022-04-20] VITALS: Ht 182.9 cm; Wt 136.4 kg
[~2022-04-20 00:52] MED LIST changes: +ADLT ASA LOW81 MG PO; +ATORVASTATIN CA40 MG PO; +CANDESARTAN CIL32 MG PO; +DIOVAN HCT320 MG/25 PO; +HYDROCHLOROT25 MG PO; +NORVASC5 M1 PO; +PLAVIX75 MG PO
[2022-04-20 01:02] VITALS: BP 153/101
[2022-04-20 01:35] LABS: BASO% 0.6 % (0-3); EOS% 5.1 % (0-8); HEMOGLOBIN 13.8 g/dl (14.0-18.0); IMMATURE GRANULOCYTES 0.1 % (0.0-5.0); LYMPH% 45.5 % (15-41); MEAN CORPUSCULAR HGB 30.6 pG CALC (26.0-32.0); MEAN CORPUSCULAR HGB CONC 37.3 g/dL CAL (32.0-36.0); MONO% 7.7 % (2-13); NEUT# 2.97 thou/uL (1.82-7.42); RED BLOOD COUNT 4.51 mill/uL (4.70-6.10); RED CELL DISTRI WIDTH 14.2 % (11.5-15.5)
[2022-04-20 01:55] LABS: ALBUMIN 4.5 g/dL (3.2-5.0); ALKALINE PHOSPHATASE 68 u/l (38-126); ANION GAP 14 (6-22 (CALC)); BILIRUBIN, TOTAL 0.4 mg/dL (0.0-1.4); BUN 10 mg/dL (9-20); BUN/CREATININE RATIO 8 (12-20 (CALC)); CARBON DIOXIDE 24 mmol/l (22-30); CHLORIDE 108 mmol/l (95-108); CREATININE 1.2 mg/dL (0.7-1.3); GFR FOR AFR.AMER. > 60 ML/MIN (>=60 (CALC)); GFR OTHER RACES > 60 ML/MIN (>=60 (CALC)); POTASSIUM 3.5 mmol/l (3.5-5.1); SGOT/AST 34 u/l (17-59); SODIUM 142 mmol/l (137-146); TOTAL PROTEIN 7.4 g/dL (6.3-8.2)
[2022-04-20 02:03] VITALS: BP 167/118
[2022-04-20 02:05] VITALS: BP 167/118
== END 2022-04-20 02:09 | disposition home or self-care (01) | DRG 948 ==
LOC: ED 00:52
PROVIDERS: Emergency Medicine
DX: R53.1 Weakness (principal); R40.4 Transient alteration of awareness; I10 Essential (primary) hypertension; Z53.29 Procedure and treatment not carried out because of patient's decision for other reasons

== ENCOUNTER 2022-06-22 03:03 | Emergency (ER) | payer OTHER ==
[~2022-06-22] VITALS: Ht 182.9 cm; Wt 131.0 kg
[2022-06-22] VITALS (26 sets, daily range): BP systolic 121–206; BP diastolic 89–144
[2022-06-22 03:35] LABS: BASO% 0.7 % (0-3); EOS% 5.2 % (0-8); HEMATOCRIT 41.2 % (39.0-50.0); HEMOGLOBIN 14.3 g/dl (14.0-18.0); IMMATURE GRANULOCYTES 0.1 % (0.0-5.0); LYMPH% 55.8 % (15-41); MEAN CELL VOLUME 82.7 fL CALC (80.0-100.0); MEAN CORPUSCULAR HGB 28.7 pG CALC (26.0-32.0); MEAN CORPUSCULAR HGB CONC 34.7 g/dL CAL (32.0-36.0); MONO% 7.6 % (2-13); NEUT# 2.3 thou/uL (1.82-7.42); NEUT% 30.6 % (42-76); RED BLOOD COUNT 4.98 mill/uL (4.70-6.10); RED CELL DISTRI WIDTH 14.5 % (11.5-15.5)
[2022-06-22 03:45] LABS: ALBUMIN 4.4 g/dL (3.2-5.0); ALKALINE PHOSPHATASE 79 u/l (38-126); ANION GAP 10 (6-22 (CALC)); BUN 13 mg/dL (9-20); BUN/CREATININE RATIO 11 (12-20 (CALC)); CARBON DIOXIDE 25 mmol/l (22-30); CHLORIDE 107 mmol/l (95-108); CREATININE 1.2 mg/dL (0.7-1.3); GFR FOR AFR.AMER. > 60 ML/MIN (>=60 (CALC)); GFR OTHER RACES > 60 ML/MIN (>=60 (CALC)); POTASSIUM 3.5 mmol/l (3.5-5.1); SGOT/AST 35 u/l (17-59); SODIUM 138 mmol/l (137-146); TOTAL PROTEIN 7.4 g/dL (6.3-8.2)
[2022-06-22 03:49] LABS: BILIRUBIN, TOTAL 0.2 mg/dL (0.2-1.3)
== END 2022-06-22 08:59 | DRG 305 ==
LOC: ED 03:03
PROVIDERS: Emergency Medicine
DX: I16.0 Hypertensive urgency (principal); M25.511 Pain in right shoulder; R07.9 Chest pain, unspecified

== ENCOUNTER 2022-08-13 04:08 | Emergency (ER) | payer OTHER ==
[~2022-08-13] VITALS: Ht 185.4 cm; Wt 127.0 kg
[2022-08-13] VITALS (15 sets, daily range): BP systolic 139–226; BP diastolic 80–137
[2022-08-13] MEDS ORDERED: LISINOPRIL10 MG PO (04:33)
[2022-08-13] MEDS ORDERED: MOTRIN400 MG/TAB PO (07:39)
[2022-08-13] MEDS ORDERED: TRAMADOL HYDROC50 M1 PO (07:39)
[2022-08-13] MEDS ORDERED: FLEXERIL5 M1 PO (07:39)
== END 2022-08-13 08:05 | disposition home or self-care (01) | DRG 90 ==
LOC: ED 04:08
DX: S06.0X0A Concussion without loss of consciousness, initial encounter (principal); M54.2 Cervicalgia; F17.200 Nicotine dependence, unspecified, uncomplicated; I10 Essential (primary) hypertension; M79.652 Pain in left thigh; V47.6XXA Car passenger injured in collision with fixed or stationary object in traffic accident, initial encounter

== ENCOUNTER 2022-08-13 21:21 | Emergency (ER) | payer OTHER ==
[2022-08-13] VITALS (8 sets, daily range): BP systolic 165–194; BP diastolic 103–130
[~2022-08-13] VITALS: Ht 185.4 cm; Wt 129.0 kg
[~2022-08-13 21:21] MED LIST changes: +FLEXERIL5 M1 PO; +LISINOPRIL10 MG PO; +MOTRIN400 MG/TAB PO; +TRAMADOL HYDROC50 M1 PO
[2022-08-13 22:11] LABS: BASO% 0.6 % (0-3); EOS% 3.3 % (0-8); HEMATOCRIT 38.8 % (39.0-50.0); HEMOGLOBIN 13.6 g/dl (14.0-18.0); IMMATURE GRANULOCYTES 0.3 % (0.0-5.0); LYMPH% 35.3 % (15-41); MEAN CORPUSCULAR HGB CONC 35.1 g/dL CAL (32.0-36.0); MONO% 8.4 % (2-13); NEUT# 5.29 thou/uL (1.82-7.42); NEUT% 52.1 % (42-76); RED BLOOD COUNT 4.85 mill/uL (4.70-6.10); RED CELL DISTRI WIDTH 14.8 % (11.5-15.5)
[2022-08-13 22:22] LABS: ALBUMIN 4.3 g/dL (3.2-5.0); ALKALINE PHOSPHATASE 75 u/l (38-126); ANION GAP 11 (6-22 (CALC)); BUN 11 mg/dL (9-20); BUN/CREATININE RATIO 10 (12-20 (CALC)); CARBON DIOXIDE 25 mmol/l (22-30); CHLORIDE 105 mmol/l (95-108); CREATININE 1.1 mg/dL (0.7-1.3); GFR FOR AFR.AMER. > 60 ML/MIN (>=60 (CALC)); GFR OTHER RACES > 60 ML/MIN (>=60 (CALC)); POTASSIUM 3.6 mmol/l (3.5-5.1); SGOT/AST 43 u/l (17-59); SODIUM 137 mmol/l (137-146); TOTAL PROTEIN 7.2 g/dL (6.3-8.2)
[2022-08-13 22:25] LABS: BILIRUBIN, TOTAL 0.6 mg/dL (0.2-1.3)
[2022-08-14] VITALS: BP 172/121
[2022-08-14 00:02] VITALS: BP 178/122
[2022-08-14 00:15] VITALS: BP 162/109
[2022-08-14 00:31] VITALS: BP 165/98
== END 2022-08-14 00:45 | disposition home or self-care (01) | DRG 605 ==
LOC: ED 21:21
PROVIDERS: Emergency Medicine
DX: S20.212A Contusion of left front wall of thorax, initial encounter (principal); F41.9 Anxiety disorder, unspecified; I10 Essential (primary) hypertension; F17.200 Nicotine dependence, unspecified, uncomplicated; V47.6XXA Car passenger injured in collision with fixed or stationary object in traffic accident, initial encounter; R51.9 Headache, unspecified; S06.0X0A Concussion without loss of consciousness, initial encounter; M79.652 Pain in left thigh

== ENCOUNTER 2022-08-18 05:16 | Emergency (ER) | payer OTHER ==
[~2022-08-18] VITALS: Ht 185.4 cm; Wt 127.0 kg
[2022-08-18 05:22] VITALS: BP 200/121
[2022-08-18 05:42] VITALS: BP 183/107
[2022-08-18] MEDS ORDERED: TYLENOL # 31 TA1 PO (05:52)
[2022-08-18] MEDS ORDERED: INDOMETHACIN75 MG PO (05:52)
[2022-08-18 06:01] VITALS: BP 200/121
== END 2022-08-18 06:10 | disposition home or self-care (01) | DRG 556 ==
LOC: ED 05:16
DX: M25.552 Pain in left hip (principal); I10 Essential (primary) hypertension; F17.200 Nicotine dependence, unspecified, uncomplicated

== ENCOUNTER 2022-08-27 23:56 | Emergency (ER) | payer OTHER ==
[~2022-08-27] VITALS: Ht 185.4 cm; Wt 110.0 kg
[~2022-08-27 23:56] MED LIST changes: +INDOMETHACIN75 MG PO; +TYLENOL # 31 TA1 PO
[2022-08-28 00:10] VITALS: BP 155/100
[2022-08-28 00:15] VITALS: BP 142/90
[2022-08-28 00:30] VITALS: BP 155/99
[2022-08-28 00:45] VITALS: BP 162/124
[2022-08-28 00:50] LABS: BASO% 0.3 % (0-3); EOS% 4.2 % (0-8); HEMATOCRIT 38.5 % (39.0-50.0); HEMOGLOBIN 13.5 g/dl (14.0-18.0); IMMATURE GRANULOCYTES 0.3 % (0.0-5.0); LYMPH% 35.5 % (15-41); MEAN CELL VOLUME 80.5 fL CALC (80.0-100.0); MEAN CORPUSCULAR HGB 28.2 pG CALC (26.0-32.0); MEAN CORPUSCULAR HGB CONC 35.1 g/dL CAL (32.0-36.0); MONO% 8.8 % (2-13); NEUT# 4.54 thou/uL (1.82-7.42); NEUT% 50.9 % (42-76); RED BLOOD COUNT 4.78 mill/uL (4.70-6.10); RED CELL DISTRI WIDTH 14.8 % (11.5-15.5)
[2022-08-28 01:02] VITALS: BP 178/122
[2022-08-28 01:07] LABS: ALBUMIN 4.3 g/dL (3.2-5.0); ALKALINE PHOSPHATASE 77 u/l (38-126); ANION GAP 12 (6-22 (CALC)); BILIRUBIN, TOTAL 0.5 mg/dL (0.2-1.3); BUN 10 mg/dL (9-20); BUN/CREATININE RATIO 10 (12-20 (CALC)); CARBON DIOXIDE 23 mmol/l (22-30); CHLORIDE 106 mmol/l (95-108); GFR FOR AFR.AMER. > 60 ML/MIN (>=60 (CALC)); GFR OTHER RACES > 60 ML/MIN (>=60 (CALC)); POTASSIUM 3.5 mmol/l (3.5-5.1); SGOT/AST 31 u/l (17-59); SODIUM 137 mmol/l (137-146)
[2022-08-28 01:50] VITALS: BP 158/98
== END 2022-08-28 01:50 | disposition home or self-care (01) | DRG 556 ==
LOC: ED 23:56
PROVIDERS: Family Medicine
DX: M79.605 Pain in left leg (principal); I10 Essential (primary) hypertension; F17.200 Nicotine dependence, unspecified, uncomplicated; Z20.822 Contact with and (suspected) exposure to COVID-19

== ENCOUNTER 2022-09-13 19:53 | Observation (INO) | payer SELFPAY ==
[~2022-09-13] VITALS: Ht 185.4 cm; Wt 17.0 kg
[2022-09-13] VITALS (18 sets, daily range): BP systolic 145–198; BP diastolic 98–123
[2022-09-13 20:11] LABS: BASO% 0.4 % (0-3); HEMATOCRIT 37.3 % (39.0-50.0); HEMOGLOBIN 13.1 g/dl (14.0-18.0); IMMATURE GRANULOCYTES 0.1 % (0.0-5.0); LYMPH% 56.4 % (15-41); MEAN CELL VOLUME 82.2 fL CALC (80.0-100.0); MEAN CORPUSCULAR HGB 28.9 pG CALC (26.0-32.0); MEAN CORPUSCULAR HGB CONC 35.1 g/dL CAL (32.0-36.0); MONO% 9.5 % (2-13); NEUT# 2.94 thou/uL (1.82-7.42); NEUT% 29.6 % (42-76); RED BLOOD COUNT 4.54 mill/uL (4.70-6.10); RED CELL DISTRI WIDTH 15.4 % (11.5-15.5)
[2022-09-13 20:23] LABS: ALBUMIN 4.7 g/dL (3.2-5.0); ALKALINE PHOSPHATASE 84 u/l (38-126); BILIRUBIN, TOTAL 0.3 mg/dL (0.2-1.3); BUN 13 mg/dL (9-20); BUN/CREATININE RATIO 10 (12-20 (CALC)); CHLORIDE 108 mmol/l (95-108); CREATININE 1.3 mg/dL (0.7-1.3); ETHYL ALCOHOL 0 mg/dl (0-30); GFR FOR AFR.AMER. > 60 ML/MIN (>=60 (CALC)); GFR OTHER RACES > 60 ML/MIN (>=60 (CALC)); POTASSIUM 3.3 mmol/l (3.5-5.1); SGOT/AST 41 u/l (17-59); SODIUM 142 mmol/l (137-146); TOTAL PROTEIN 7.5 g/dL (6.3-8.2)
[2022-09-13 20:26] LABS: ANION GAP 20 (6-22 (CALC)); CARBON DIOXIDE 17 mmol/l (22-30)
[2022-09-13 20:27] LABS: PROTHROMBIN TIME 10.4 SECONDS (9.0-12.5)
[2022-09-14] MEDS ORDERED: CLONIDINE HCL0.1 MG PO (00:40)
[2022-09-14] MEDS ORDERED: DIOVAN HCT320 MG/25 PO (00:43)
[2022-09-14] MEDS ORDERED: ATORVASTATIN CA40 MG PO (00:44)
[2022-09-14 02:48] LABS: URINE BILIRUBIN - DIPSTICK NEGATIVE (NEGATIVE); URINE BLOOD DIPSTICK TRACE-INTACT (NEGATIVE); URINE COLOR YELLOW; URINE GLUCOSE - DIPSTICK NEGATIVE (NEGATIVE); URINE KETONE TRACE mg/dL (NEGATIVE); URINE LEUK ESTERASE NEGATIVE (NEGATIVE); URINE PROTEIN - DIPSTICK TRACE mg/dL (NEG-TRACE); URINE SPECIFIC GRAVITY 1.025; URINE UROBILINOGEN - DIPSTICK 0.2 E.U./dL (0.2)
[2022-09-14 02:49] LABS: URINE NITRITE - DIPSTICK NEGATIVE (Negative)
[2022-09-14 05:21] VITALS: BP 163/112
[2022-09-14 05:31] VITALS: BP 161/106
[2022-09-14 05:46] VITALS: BP 147/110
[2022-09-14 06:00] VITALS: BP 152/105
[2022-09-14] MEDS ORDERED: INDOMETHACIN75 MG PO (06:41)
== END 2022-09-14 01:32 | disposition left against medical advice (07) | DRG 313 ==
LOC: ED 19:53 → ED-I 22:39 → ED 22:56 → MS2 22:57
PROVIDERS: Family Medicine; ADMIT Internal Medicine; ATTEND Internal Medicine
DX: R07.9 Chest pain, unspecified (principal); I16.0 Hypertensive urgency; R41.82 Altered mental status, unspecified; I10 Essential (primary) hypertension; F17.200 Nicotine dependence, unspecified, uncomplicated
CPT/HCPCS: G0378; J1650

== ENCOUNTER 2022-09-14 04:41 | Emergency (ER) | payer SELFPAY ==
[~2022-09-14] VITALS: Ht 185.4 cm; Wt 110.0 kg
[~2022-09-14 04:41] MED LIST changes: +CLONIDINE HCL0.1 MG PO
[2022-09-14 05:06] VITALS: BP 172/97
[2022-09-14 05:54] LABS: BASO% 0.5 % (0-3); EOS% 3.8 % (0-8); HEMATOCRIT 36.4 % (39.0-50.0); HEMOGLOBIN 12.7 g/dl (14.0-18.0); LYMPH% 35.9 % (15-41); MEAN CELL VOLUME 81.1 fL CALC (80.0-100.0); MEAN CORPUSCULAR HGB 28.3 pG CALC (26.0-32.0); MEAN CORPUSCULAR HGB CONC 34.9 g/dL CAL (32.0-36.0); MONO% 9.6 % (2-13); NEUT# 4.09 thou/uL (1.82-7.42); NEUT% 50.2 % (42-76); RED BLOOD COUNT 4.49 mill/uL (4.70-6.10); RED CELL DISTRI WIDTH 15.2 % (11.5-15.5)
[2022-09-14 06:11] LABS: ALBUMIN 4.1 g/dL (3.2-5.0); ALKALINE PHOSPHATASE 71 u/l (38-126); BILIRUBIN, TOTAL 0.4 mg/dL (0.2-1.3); BUN 11 mg/dL (9-20); BUN/CREATININE RATIO 10 (12-20 (CALC)); CHLORIDE 109 mmol/l (95-108); GFR FOR AFR.AMER. > 60 ML/MIN (>=60 (CALC)); GFR OTHER RACES > 60 ML/MIN (>=60 (CALC)); POTASSIUM 3.5 mmol/l (3.5-5.1); SGOT/AST 30 u/l (17-59); SODIUM 141 mmol/l (137-146); TOTAL PROTEIN 6.7 g/dL (6.3-8.2)
[2022-09-14 06:12] LABS: ANION GAP 10 (6-22 (CALC)); CARBON DIOXIDE 26 mmol/l (22-30)
[2022-09-14] MEDS ORDERED: INDOMETHACIN75 MG PO (06:41)
== END 2022-09-14 06:55 | disposition home or self-care (01) | DRG 313 ==
LOC: ED 04:41
PROVIDERS: Family Medicine
DX: R07.89 Other chest pain (principal); I10 Essential (primary) hypertension

== ENCOUNTER 2022-11-07 00:08 | Observation (INO) | payer BC ==
[~2022-11-07] VITALS: Ht 185.4 cm; Wt 110.0 kg
[2022-11-07] VITALS (75 sets, daily range): BP systolic 112–193; BP diastolic 66–142
--- NOTE | 2022-11-07 00:15 | NUR ---
PT TO ER BED 3 FOR TRIAGE VIA WHEELCHAIR AT THIS TIME.
--- NOTE | 2022-11-07 01:20 | NUR ---
PT MEDICATED FOR BP IN SPLIT DOSE OF TRANDATE.
[2022-11-07 01:29] LABS: BASO% 0.6 % (0-3); EOS% 4.9 % (0-8); HEMATOCRIT 39.5 % (39.0-50.0); HEMOGLOBIN 13.9 g/dl (14.0-18.0); IMMATURE GRANULOCYTES 0.2 % (0.0-5.0); LYMPH% 45.7 % (15-41); MEAN CELL VOLUME 79.5 fL CALC (80.0-100.0); MEAN CORPUSCULAR HGB CONC 35.2 g/dL CAL (32.0-36.0); MONO% 7.4 % (2-13); NEUT# 4.09 thou/uL (1.82-7.42); NEUT% 41.2 % (42-76); RED BLOOD COUNT 4.97 mill/uL (4.70-6.10); RED CELL DISTRI WIDTH 15.2 % (11.5-15.5)
[2022-11-07 01:40] LABS: ALBUMIN 4.3 g/dL (3.2-5.0); ALKALINE PHOSPHATASE 89 u/l (38-126); ANION GAP 14 (6-22 (CALC)); BUN 14 mg/dL (9-20); BUN/CREATININE RATIO 13 (12-20 (CALC)); CARBON DIOXIDE 22 mmol/l (22-30); CHLORIDE 106 mmol/l (95-108); GFR FOR AFR.AMER. > 60 ML/MIN (>=60 (CALC)); GFR OTHER RACES > 60 ML/MIN (>=60 (CALC)); POTASSIUM 3.9 mmol/l (3.5-5.1); SGOT/AST 39 u/l (17-59); SODIUM 138 mmol/l (137-146); TOTAL PROTEIN 7.4 g/dL (6.3-8.2)
[2022-11-07 01:41] LABS: BILIRUBIN, TOTAL 0.6 mg/dL (0.2-1.3)
--- NOTE | 2022-11-07 02:08 | NUR ---
R.TIsra AT BEDSIDE.
[2022-11-07 02:22] LABS: AMYLASE 56 u/l (30-110); LIPASE 138 u/l (23-300)
--- NOTE | 2022-11-07 02:26 | NUR ---
URINAL EMPTIED FOR 400 CC OF URINE. PT GIVEN LASIX. PT STATES THAT HE DOES HAVE SLEEP APNEA BUT DOES NOT WEAR A MASK. DR TO BEDSIDE TO DISCUSS POC
--- NOTE | 2022-11-07 03:00 | NUR ---
U/O 400 CC. PT NOW RESTING. BP UP. ADVISED.
--- NOTE | 2022-11-07 03:30 | NUR ---
PT SLEEPING. 10 MG OF LABETALOL GIVEN. URINAL EMPTIED FOR 350 CC
--- NOTE | 2022-11-07 04:00 | NUR ---
PT VOIDED 750 CC OF URINAL. 148/122. 2ND HALF OF LABETALOL GIVEN. PT RESTING. NAD.
--- NOTE | 2022-11-07 04:43 | NUR ---
PT SLEEPING. BP GOING UP. NOTIFIED. U/O 425 CC.
--- NOTE | 2022-11-07 05:35 | NUR ---
REPORT TO TRISTAN MARTINEZ RN/ICU NICARDIPINE DRIP STARTED AT 5 MG/VIA PUMP. BP CURRENTLY AT 179/123 TOTAL URINE OUTPUT IS 1325 CC'S. PT REMAINS A/O. BREATHING EASIER. NO C/O AT THIS TIME. PT STILL ON O2 @ 2 LPM NC DO TO SLEEP APNEA WHERE HE WAS DROPPING TO MID-80'S AT TIMES. BETTER WITH O2.
--- NOTE | 2022-11-07 05:40 | NUR ---
TO ICU BED 4 VIA STRETCHER WITH O2/MONITOR/CARDANE DRIP ON PUMP. RN WITH PT.
--- NOTE | 2022-11-07 07:00 | NUR ---
REPORT RECIEVED FROM INDUSTRIAL CAFETERIA MANAGER RN
--- NOTE | 2022-11-07 07:15 | NUR ---
CARDENE DRIP TITRATED FROM 5MG TO 2.5MG.
--- NOTE | 2022-11-07 08:00 | NUR ---
PT RESTING IN BED WITH EYES CLOSED. BREATHING EVEN AND UNLABORED WITH AUDIBLE SNORING. AT BEDSIDE. ASSESSMENT ALLOWED UPON AWAKENING. PT A&OX3. UPDATED PT IN CURRENT PLAN OF CARE. PT INIDCATED UNDERSTANING. FALL/SAFTEY PRECAUTION IN PLACE. CALL LIGHT WITHIN REACH.
--- NOTE | 2022-11-07 08:16 | NUR ---
MD AT BEDSIDE DISCCUSING PLAN OF CARE
--- NOTE | 2022-11-07 08:27 | NUR ---
CARDENE DRIP TITRATED TO 0 PER MD ORDERS. PT ABLE TO TOLERATE PO MEDS WELL.FALL/SAFTEY PRECAUTION IN PLACE. CALL LIGHT WIHTIN REACH
[2022-11-07] MEDS ORDERED: PROCARDIA XL30 MG PO (10:26)
--- NOTE | 2022-11-07 12:07 | NUR ---
FAMILY AT BEDSIDE. PT ALERT TALKING TO FAMILY. BREATHING IS EVEN AND UNLABORED. STATES NO NEEDS AT THIS TIME. FALL/SAFTEY PRECAUTIO [address] PLACE. CALL LIGHT WITHIN REACH
--- NOTE | 2022-11-07 16:45 | NUR ---
PT RESTING SLEEPING IN BED WITH AUDIBLE SNORING. BREATHING IS EVEN AND UNLABORED. NO DISTRESS NOTED. AT BEDSIDE. FALL/SAFTEY PRECAUTION IN PLACE. CALL LIGHT WIHTIN REACH
--- NOTE | 2022-11-07 18:18 | NUR ---
PT RESTING WATCHING TV WITH SIGNIFICANT OTHER. DINNER 100% STATES NO NEEDS AT THIS TIME. FALL/SAFTEY PRECAUITON IN PLACE. CALL LIGHT WITHIN REACH
--- NOTE | 2022-11-07 19:00 | NUR ---
HAND OFF REPORT RECEIVED.
--- NOTE | 2022-11-07 19:12 | NUR ---
VISITOR INFORMED OF VISITING HOURS ENDING AT 8
--- NOTE | 2022-11-07 19:53 | NUR ---
PATIENT RESTING QUIETLY WATCHING TV, RESPIRATIONS EVEN AND UNLABORED ON ROOM AIR, NO C/O PAIN OR DISCOMFORT, NO S/S OF DISTRESS NOTED, VISITOR AT BEDSIDE REMINDED AGAIN THAT VISITING HOURS ARE ENDING.
--- NOTE | 2022-11-07 21:03 | NUR ---
VISITOR ASKED TO LEAVE BY SECURITY AND NURSING LIGHT OIL OPERATOR, PATIENT C/O ROOM BRING TOO HOT, GLASS DOOR OPENED, BATHROOM DOORS OPENED, FAN ON, PATIENT CONTINUES TO COMPLAIN EVEN THOUGH MANY MEASURES HAVE BEEN TAKEN TO HELP COOL PATIENT AND ROOM, NURSING LIGHT OIL OPERATOR SPOKE WITH PATIENT ABOUT SWITCHING ROOMS IF PATIENT IS NOT MORE COMFORTABLE WITH COOLING MEASURES BEING TAKEN.
--- NOTE | 2022-11-07 21:20 | NUR ---
PATIENT STATES FEELING MUCH BETTER, CALMER AND COOLER, RESTING IN BED AT THIS TIME WATCHING TV, NO S/S OF DISTRESS NOTED.
--- NOTE | 2022-11-07 22:00 | NUR ---
RESTING QUIETLY, WATCHING TV, LIGHTS OFF FOR PATIENT COMFORT, ROOM AIR, NO C/O PAIN OR DISCOMFORT.
[2022-11-08] VITALS (16 sets, daily range): BP systolic 110–169; BP diastolic 63–116
--- NOTE | 2022-11-08 00:08 | NUR ---
PATIENT RESTING QUIETLY WITH EYEWS CLOSED, RESPIRATIONS EVEN AND UNLABORED ON ROOM AIR.
--- NOTE | 2022-11-08 02:08 | NUR ---
PATIENT RESTING QUIETLY WITH EYES CLOSED, RESPIRATIONS EVEN AND UNLABORED ON ROOM AIR.
--- NOTE | 2022-11-08 04:00 | NUR ---
RSTING QUIETLY WITH EYES CLOSED, RESPIRATIONS EVEN AND UNLABORED ON ROOM AIR.
[2022-11-08 05:59] LABS: HEMATOCRIT 40.4 % (39.0-50.0); HEMOGLOBIN 14.5 g/dl (14.0-18.0); MEAN CELL VOLUME 79.8 fL CALC (80.0-100.0); MEAN CORPUSCULAR HGB 28.7 pG CALC (26.0-32.0); MEAN CORPUSCULAR HGB CONC 35.9 g/dL CAL (32.0-36.0); RED BLOOD COUNT 5.06 mill/uL (4.70-6.10); RED CELL DISTRI WIDTH 14.9 % (11.5-15.5)
[2022-11-08 06:22] LABS: ALBUMIN 3.9 g/dL (3.2-5.0); ALKALINE PHOSPHATASE 74 u/l (38-126); ANION GAP 10 (6-22 (CALC)); BILIRUBIN, TOTAL 0.5 mg/dL (0.2-1.3); BUN 14 mg/dL (9-20); BUN/CREATININE RATIO 13 (12-20 (CALC)); CARBON DIOXIDE 26 mmol/l (22-30); CHLORIDE 105 mmol/l (95-108); CREATININE 1.1 mg/dL (0.7-1.3); GFR FOR AFR.AMER. > 60 ML/MIN (>=60 (CALC)); GFR OTHER RACES > 60 ML/MIN (>=60 (CALC)); POTASSIUM 3.5 mmol/l (3.5-5.1); SGOT/AST 38 u/l (17-59); SODIUM 137 mmol/l (137-146); TOTAL PROTEIN 6.8 g/dL (6.3-8.2)
--- NOTE | 2022-11-08 08:00 | NUR ---
REPORT RECIEVED FROM NIGHT RN. PT IS ALERT AND ORIENTED. PT ABLE TO ABULATE INDEPENDENTLY. LUNGS CLEAR; PT IS ON RA AND DENIES ANY SOB OR CHEST TIGHTNESS. HEART RHYTHM REGULAR; PT IS IN NSR. BOWEL SOUNDS ACTIVE. ABDOMEN DISTENDED AND SOFT; NO ABDOMINAL TENDERNESS. PT VOIDS WITHOUT DIFFICULTY. PULSES STRONG ALL EXTREMETIES. NO EDEMA NOTES. SKIN WARM/DRY/INTACT. IV ACCESS 20G RAC. PT DENIES ANY NEEDS AT THIS TIME. CALL LIGHT AND BELONGINGS WITHIN REACH. VSS.
--- NOTE | 2022-11-08 08:40 | NUR ---
DR. GOMEZ AT BEDSIDE TO ASSESS PT.
--- NOTE | 2022-11-08 08:45 | NUR ---
METAL WINDOW SCREEN ASSEMBLER AT BEDSIDE TO COMPLETE ORDERED ECHO.
--- NOTE | 2022-11-08 10:30 | NUR ---
PT LYING IN BED. PT HAS BEEN UP TO USE THE RESTOOM MULTIPLE TIMES BUT DECLINES ANY ASSISTANCE AND AMBULATES WITHOUT DIFFICULTY. PT'S SPOUSE AT BEDSIDE. CALL LIGHT AND BELONGINGS WITHIN REACH. PT AWARE TO CALL NURSING STAFF WITH ANY NEEDS. VSS AT THIS TIME.
--- NOTE | 2022-11-08 12:00 | NUR ---
PT ASLEEP IN BED. FAMILY AT BEDSIDE. CALL LIGHT AND BELONGINGS WITHIN REACH. VSS AT THIS TIME.
--- NOTE | 2022-11-08 12:20 | NUR ---
PT HAD A RUN OF V-TACH THAT RESOLVED WITHOUT INTERVENTION. PT WAS ASLEEP AT THE TIME. DR. GOMEZ NOTIFIED AND CARDIOLOGY CONSULT PLACED.
--- NOTE | 2022-11-08 14:00 | NUR ---
PT IS UPSET THAT HE MAY NOT GET DISCHARGED TODAY. PT THREATENING TO LEAVE AMA. PT EDUCATED ON THE IMPORTANCE OF CARDIAC MONITORING. PT REPORTS THAT THE ROOM IS TOO HOT BUT WOULD STAY IF THERE WAS A COOLER ROOM. PT SWITCHED TO LARGER ICU ROOM.
--- NOTE | 2022-11-08 15:15 | NUR ---
TELE-CARDIOLOGY CONSULT COMPLETE. ALL PT QUESTIONS ANSWERED.
--- NOTE | 2022-11-08 16:25 | NUR ---
LIFE VEST MINING CONSULTANT AT BEDSIDE. VSS AT THIS TIME. FAMILY AT BEDSIDE.
[2022-11-08] MEDS ORDERED: COREG25 MG PO (17:19)
[2022-11-08] MEDS ORDERED: JARDIANCE10 MG PO (17:20)
--- NOTE | 2022-11-08 17:26 | NUR ---
PT HAS LIFE VEST ON. PT THOUGHT AFTER THE LIFE VEST HE WAS ABLE TO GO HOME. PT INFORMED THAT THE PHYSICIAN WANTS HIM TO STAY ANOTHER NIGHT. PT VISIBLY UPSET AND THREATENING TO LEAVA AMA. PT EDUCATED ON THE IMPORTANCE OF STAYING TO BE MONITORED. DR. GOMEZ NOTIFIED OF THE SITUATION.
--- NOTE | 2022-11-08 17:46 | NUR ---
PT INFORMED THAT HE WILL BE DISCHARGED AND THAT NIRSING STAFF JUST NEEDS TO COMPLETE THE PAPERWORK. PT AGREED TO WAIT. WHEN WALKING OVER TO ROOM TO DO DISCHARGE TEACHING PT WALKED OUT OF ROOM AND STATED HE WAS LEAVING AND COULDN'T STAY IN THE ROOM WITH HIS SIGNIFICANT OTHER AND HE WAS GOING TO WALK OUT RIGHT NOW. PT QUICKLY GIVEN DISCHARGE EDUCATION AND IV REMOVED. PT AWARE OF APPT NEXT WEEK WITH DR. GOMEZ, WHICH WAS ALSO WRITTEN ON HIS DISCHARGE PACKET. PT REFUSED TO LEAVE IN A WHEELCHAIR AND WALKED OUT INDEPENDENTLY WITH ALL BELONGINGS. PT IN GOOD CONDITION UPON DISCHARGE.
== END 2022-11-08 15:45 | disposition home or self-care (01) | DRG 291 ==
LOC: ED 00:08 → ED-I 01:06 → ED 01:06 → ED-I 02:30 → ED 03:10 → ICU 03:11
PROVIDERS: Emergency Medicine; ADMIT Internal Medicine; ATTEND Internal Medicine
DX: I11.0 Hypertensive heart disease with heart failure (principal); I50.21 Acute systolic (congestive) heart failure; I47.20 Ventricular tachycardia, unspecified; I16.0 Hypertensive urgency; R07.9 Chest pain, unspecified; G47.33 Obstructive sleep apnea (adult) (pediatric); T50.916A Underdosing of multiple unspecified drugs, medicaments and biological substances, initial encounter; Z91.128 Patient's intentional underdosing of medication regimen for other reason; Z20.822 Contact with and (suspected) exposure to COVID-19

== ENCOUNTER → 2023-12-20 | Emergency (ER) | payer SELFPAY ==
[2023-12-20] VITALS (13 sets, daily range): BP systolic 123–205; BP diastolic 64–134
[~2023-12-20] VITALS: Ht 185.4 cm; Wt 140.0 kg
[~2023-12-20] MED LIST changes: +ALDACTONE50 MG PO; +CARVEDILOL 25 MG/TAB PO ONE; +CARVEDILOL25 MG PO; +COREG25 MG PO; +DEXAMETHASONE SOD. PHOSPHATE 10 MG/ML VIAL IM ONE; +JARDIANCE10 MG PO; +KETOROLAC TROMETHAMINE 30 MG/ML SDV IM ONE; +OSELTAMIVIR PHOSPHATE 75 MG/TAB CAP PO ONE; +PROCARDIA XL30 MG PO; +amLODIPine BESYLATE 5 MG/TAB PO ONE; +cloNIDine HCL 0.1 MG/TAB PO ONE
== END | disposition home or self-care (01) | DRG 195 ==
LOC: ED 15:22
DX: J10.1 Influenza due to other identified influenza virus with other respiratory manifestations (principal); I10 Essential (primary) hypertension; T46.5X6A Underdosing of other antihypertensive drugs, initial encounter; Z91.128 Patient's intentional underdosing of medication regimen for other reason; Z20.822 Contact with and (suspected) exposure to COVID-19